=== PATIENT | male | born 1975 | race African-American/Black ===

== ENCOUNTER 2016-12-31 | Emergency (ER) | payer OTHER ==
[~2016-12-31] VITALS: Ht 175.3 cm; Wt 127.9 kg
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
[2016-12-31 00:46] LABS: BASO # 0.1 x10^3/uL (0.0-0.2); BASO % 0 % (0-3); EOS % 0 % (0-3); HEMATOCRIT 45.3 % (39.0-53.0); LYMPH # 1.4 x10^3/uL (1.0-4.8); LYMPH % 6 % (24-48); MEAN CORPUSCULAR HEMOGLOBIN 31 pg (25-35); MEAN CORPUSCULAR HGB CONC 33 g/dL (31-37); MEAN CORPUSCULAR VOLUME 94 fL (79-100); MONO % 8 % (0-9); NEUT % 86 % (31-73); PLATELET COUNT 214 x10^3/uL (140-400); RED BLOOD COUNT 4.81 x10^6/uL (4.30-5.70); RED CELL DISTRIBUTION WIDTH 12.4 % (11.5-14.5)
[2016-12-31 00:54] LABS: CALCIUM 9.4 mg/dL (8.5-10.1); CREATININE 1.3 mg/dL (0.7-1.3); GFR 72.9; POTASSIUM 3.7 mmol/L (3.5-5.1)
[2016-12-31 01:00] LABS: ALBUMIN/GLOBULIN RATIO 0.7 (1.0-1.7); TOTAL BILIRUBIN 0.8 mg/dL (0.2-1.0); TOTAL PROTEIN 7.4 g/dL (6.4-8.2)
[2016-12-31] MEDS ORDERED: fentaNYL PF VIAL 100 MCG/2 ML VIAL IV ONE (01:00)
[2016-12-31] MEDS ORDERED: ONDANSETRON ODT 4 MG TAB.RAPDIS. PO ONE (01:00)
[2016-12-31] MEDS ORDERED: IV NORMAL SALINE 500ML BAG 500 ML IV ONE (01:00)
[2016-12-31] MEDS ORDERED: ACETAMINOPHEN 325 MG TABLET. PO ONE (01:00)
[2016-12-31 01:12] LABS: PLT ESTIMATE ADEQUATE (ADEQUATE)
[2016-12-31] MEDS ORDERED: IV NORMAL SALINE 1000ML BAG 1,000 ML IV ONE ×2 (01:30→02:00)
[2016-12-31] MEDS ORDERED: VANCOMYCIN PER PHARMACY MC PRN (01:30)
[2016-12-31] MEDS ORDERED: PIPERACILLIN/TAZOBACTAM 4.5 GM in IV NORMAL SALINE 100ML 100 ML IV ONE (01:30)
[2016-12-31] MEDS ORDERED: CONTRAST GIVEN MC PRN (01:30)
--- NOTE | 2016-12-31 01:40 | RAD ---
INDICATION: Testicular swelling COMPARISON: None. TECHNIQUE: Grayscale, color and spectral doppler ultrasound images obtained of the scrotum. FINDINGS: Right Testicle: 42 x 29 x 23 mm. Vascular flow is identified. Left Testicle: 38 x 31 x 22 mm. Vascular flow is identified. Left testicular calcifications. Right epididymis is hypervascular. Right scrotal wall thickening with edema and hypervascularity. IMPRESSION: 1. Thickening of the soft tissues overlying the right scrotum with edema and hypervascularity. This could be infectious in nature in the correct clinical context. The right epididymis is also hypervascular therefore possible that there is superimposed epididymitis. No definite drainable fluid collection at this time. There is soft tissue thickening overlying the left scrotum to a lesser degree. Electronically signed by: Shaquille Crowell MD (12/31/2016 1:37 AM) [facility]
[2016-12-31] MEDS ORDERED: IOHEXOL 300 MG/ML 75 ML VIAL IV ONE (02:00)
[2016-12-31] MEDS ORDERED: VANCOMYCIN 2 GM in IV NORMAL SALINE 500ML BAG 500 ML IV ONE (02:00)
[2016-12-31] MEDS ORDERED: IBUPROFEN 800 MG TABLET. PO ONE (02:30)
[2016-12-31 02:32] VITALS: BP 132/59
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
--- NOTE | 2016-12-31 06:07 | EKG ---
[facility] [address] [place] [address] Test Date: 2016-12-31 Test Time: 01:32:36 Pat Name: SANTINO VILLAGOMEZ Department: Room: Gender: M Musician Instrumental: : 1975 Requested By: DAVON CARLSON Order Number: [id number] Reading MD: Sina Romero Measurements Intervals [place] Rate: 114 P: 139 AL: 136 QRS: 152 QRSD: 90 T: -142 QT: 318 QTc: 442 Interpretive Statements SINUS TACHYCARDIA ABNORMAL RIGHT AXIS DEVIATION NONSPECIFIC ST-T WAVE CHANGES. RI6.01 Unconfirmed report No previous ECG available for comparison Electronically Signed On 01-07-2017 9:02:47 CDT by Sina Romero
== END 2016-12-31 02:40 | disposition short-term general hospital (02) ==
LOC: ER
DX: N49.3 Fournier gangrene (principal); A41.9 Sepsis, unspecified organism; E87.2 Acidosis; I10 Essential (primary) hypertension
CPT/HCPCS: 36415; 74177; 76870; 80053; 83605; 85007; 85027; 87040; 93005; 96365; 96375; 99291; C1887; J2543; J3010; J7030; J7040; Q0162; Q9967